=== PATIENT | female | born 1975 | race African-American/Black ===

== ENCOUNTER 2016-10-15 10:31 | Emergency (ER) | payer OTHER ==
[2016-10-15 10:50] VITALS: BP 149/63
--- NOTE | 2016-10-15 11:38 | Diag Imaging Result Document ---
PROCEDURE NAME: FINGER(S)-RIGHT - 10/15/2016 RIGHT THIRD FINGER, THREE VIEWS: FINDINGS: No fracture. No dislocation. IMPRESSION: No acute bony injury.
--- NOTE | 2016-10-15 12:09 | PROVIDER DOCUMENTATION ---
HPI-Musculoskeletal Pain/Inj - GENERAL Chief Complaint: Extremity Injury Stated Complaint: EXTREMITY PAIN/INJ Time Seen by Provider: 10/15/16 11:59 Source: patient - HX OF PRESENT ILLNESS-MUSKULOSKELTAL Nature of Presenting Problem: 40 yo AAF presents to ED with cc of a sore R third digit after hitting it on a marble table yesterday. Upon arrival to ED, pt is alert and in no apparent distress. Severity in ED: mild Onset/Duration: abrupt, 24 hours ago Timing: still present Modifying Factors: worse with: palpation Any recent injury?: Yes Locality of Occurance: Other (Sister's home) Similar Symptoms Previously?: No - UPPER EXTREMITY PAIN/INJURY Extremities Pain Location: 3rd finger: right (tender) Context / Method of Injury: reports: direct blow Associated Symptoms: reports: denies symptoms Review of Systems - Adult - REVIEW OF SYSTEMS - ADULT Constitutional: reports: no symptoms reported. denies: chills, fever Eyes: reports: no symptoms reported. denies: decreased vision, double vision Ears, Nose, Mouth & Throat: reports: no symptoms reported. denies: ear discharge, sinus problem Cardiovascular: reports: no symptoms reported. denies: chest pain, heart murmur Respiratory: reports: no symptoms reported. denies: chronic cough, hemoptysis Gastrointestinal: reports: no symptoms reported. denies: abdominal pain, diarrhea Genitourinary: reports: no symptoms reported. denies: flank pain, hematuria Musculoskeletal: reports: other (finger pain, 3rd digit R hand) Integumentary: reports: no symptoms reported. denies: hives, itching Neurological: reports: no symptoms reported. denies: dizziness/vertigo, loss of balance Psychiatric: reports: no symptoms reported Endocrine: reports: no symptoms reported Hematologic/Lymphatic: reports: no symptoms reported Allergic/Immunologic: reports: no symptoms reported All Other Systems: Reviewed and Negative Past History - Adult - PAST MEDICAL HISTORY-ADULT Review of Records: reports: Old Records Reviewed, Nursing Assessment Review, Medications Reviewed Major Childhood Illnesses: reports: denies history Cardiovascular: reports: HTN Respiratory: reports: denies history Gastrointestinal: reports: denies history Obstetrical/Gynecological: reports: denies history Genitourinary: reports: denies history Musculoskeletal: reports: chronic pain Neurological: reports: headaches/migraines Psychiatric: reports: anxiety Endocrine/Immune: reports: denies history Other Conditions: reports: denies history Additional History: Very frequent ER visits - PRIOR SURGERIES/PROCEDURES Surgical/Procedure History: reports: cholecystectomy, orthopedic (extremity), other (I&D of hemorrhoid) - PRIOR HOSPITALIZATIONS Prior Hospitalizations: reports: none - IMMUNIZATION STATUS Childhood Immunizations: See Nurse Assessment Flu Vaccine: See Nurse Assessment - FAMILY HISTORY Family History: reviewed, not pertinent Physical Exam-Injury Related - Physical Exam-Injury Related Initial Vital Signs Reviewed: Yes General Appearance: appears well, alert, no apparent distress Eyes: PERRL/EOMI, pink conjunctivae Head, Ears, Nose, Mouth & Throat: normocephalic/atraumatic, moist mucous membranes Neck: non-tender, full range of motion, supple Respiratory: chest non-tender, lungs clear Cardiovascular: normal peripheral pulses, regular rate, rhythm Abdominal Exam: non tender, soft Lymphatic: no adenopathy Back Exam: normal inspection, no vertebral tenderness Extremity: normal range of motion, tenderness (3rd digit R hand). negative: deformity, erythema, swelling Integumentary: normal color, warm/dry Neurologic: grossly normal, no motor/sensory deficits Psych/Mental Status: normal mood/affect, normal thought content, normal thought process, oriented x 3 - Gl[place]ow Coma Score Best Eye Response ([place]): (4) open spontaneously Best Verbal Response ([place]): (5) oriented Best Motor Response ([place]): (6) obeys commands [place] Total: 15 Progress - PLAN OF CARE/RESULTS Progress/Plan/Lab Results: Vital Signs - 24 hr 10/15/16 10:49 Temperature 98.3 F Pulse Rate 63 Respiratory 18 Rate Blood Pressure 149/63 O2 Sat by Pulse 100 Oximetry Orders Category Date Time Status FINGER(S)-RIGHT [RAD] Stat Exams 10/15/16 11:16 Draft Celecoxib [Celebrex] Med 10/16/16 09:00 Ordered 400 mg PO DAILY - XRAY 1 XRAY: Right XRAY Study: Hand Impression: Normal XRAY Interpretation: NAD (kaleb Sanchez, radiology) Attestation - Scribe Verification/Attestation Scribe:: Heather Alvarez Acting as Scribe for:: Gustavo Benitez Scribe documention review:: This chart was documented by a scribe and accurately reflects the service the provider performed and the decisions made by the provider. - Physician/ DARRYL Attestation Patient care was provided by Advanced Practice Provider:: No
[2016-10-15] MEDS ORDERED: CELEBREX ONE (12:12)
[2016-10-15] MEDS ORDERED: CELEBREX PO ONE (12:15)
[2016-10-16] MEDS ORDERED: CELEBREX PO SCH (09:00)
== END 2016-10-15 12:46 | disposition home or self-care (01) ==
LOC: P.ED 10:31
DX: M79.644 Pain in right finger(s) (principal); W22.8XXA Striking against or struck by other objects, initial encounter; I10 Essential (primary) hypertension; G89.29 Other chronic pain; R51 Headache; Z79.899 Other long term (current) drug therapy
CPT/HCPCS: 73140; 99283

== ENCOUNTER 2019-06-08 18:19 | Inpatient (IN) ==
[2019-06-08] MEDS ORDERED: NS 1,000 ML IV ONE ×3 (19:03→21:49)
[2019-06-08 19:16] LABS: CALCIUM 9.9 mg/dL (8.8-10.2); CREATININE 5.3 mg/dL (0.5-0.9); POTASSIUM 5.3 mmol/L (3.5-5.1)
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
[2019-06-08 20:03] LABS: BASO# 0.07 X1000 (0.0-0.2); BASO% 0.6 % (0.0-0.8); EOS# 0.27 X1000 (0.0-0.7); EOS% 2.2 % (0.0-10.0); HEMATOCRIT 34.6 % (37.0-47.0); HEMOGLOBIN 10.5 g/dL (12.0-16.0); IMM GRAN# 0.02 X1000 (0.0-0.04); IMM GRAN% 0.2 % (0.0-0.5); LYMPH# 4.57 X1000 (1.2-3.4); LYMPH% 37.5 % (20.5-51.1); MCH 26.3 PG (27-31); MCHC 30.3 g/dL (33-37); MCV 86.7 FL (81-99); MONO% 7.4 % (1.7-9.3); MPV 11.6 FL (7.4-10.4); NEUT# 6.36 X1000 (1.4-6.5); NEUT% 52.1 % (42.2-75.2); PLT 397 X1000 (130-400); RBC 3.99 XMIL (4.2-5.4); WBC 12.19 X1000 (4.8-10.8)
--- NOTE | 2019-06-08 20:03 | Diag Imaging Result Doc PS360 ---
EXAM: CT HEAD W/O CONTRAST HISTORY: AMS,headache TECHNIQUE: CT head without contrast COMPARISON: 09/24/2017 FINDINGS: No parenchymal hemorrhage. No epidural or subdural hematoma. No subarachnoid hemorrhage. No mass identified on this noncontrasted exam. No hydrocephalus. No sinus opacification. IMPRESSION: No hemorrhage. Negative brain CT without contrast. This exam was performed using automated exposure control, adjustment of mA or kV according to patient size, and/or use of iterative reconstruction technique. Electronically signed by Ahmet Sanchez 06/08/2019 8:00 PM
[2019-06-08 20:19] LABS: CK INDEX 1.3 (0.0-2.5); CK-MB 17.68 ng/mL (0.0-5.0)
[2019-06-08 20:42] LABS: BILIRUBIN URINE NEGATIVE (NEGATIVE); GLUCOSE URINE NEGATIVE (NEGATIVE)
[2019-06-08 20:43] LABS: BLOOD URINE 2+ (NEGATIVE); CLARITY SL. CLOUDY (CLEAR); COLOR YELLOW; KETONE URINE TRACE mg/dL (NEGATIVE); LEUKOCYTES URINE 1+ (NEGATIVE); NITRITE URINE NEGATIVE (NEGATIVE); PH URINE 6.5; PROTEIN URINE 1+(30 mg/dL) mg/dL (NEGATIVE); UROBILINOGEN URINE NORMAL
[2019-06-08 20:45] LABS: URINE SOURCE CATH
[2019-06-08] MEDS ORDERED: ZOFRAN IV PRN (20:45)
[2019-06-08 20:46] LABS: URINE BACTERIA 4+ /HFP; URINE EPITHELIAL CELLS <10 /HPF (<10); URINE RBC <10 /HPF (<10); URINE YEAST NONE SEEN /HPF
[2019-06-08 20:47] LABS: URINE CAST NONE SEEN /LPF; URINE CRYSTAL NONE SEEN /HPF
[2019-06-08] MEDS ORDERED: SODIUM BICARBONATE 8.4% IV PUSH ONE (20:48)
[2019-06-08 20:56] LABS: UR AMPHETAMINES QUAL NONE DETECTED (NONE DETECT); UR BARBITUATES QUAL NONE DETECTED (NONE DETECT); UR BENZODIAZEPIN QUAL PRESUMPTIVE POSITIVE (NONE DETECT); UR CANNABINOIDS QUAL NONE DETECTED (NONE DETECT); UR COCAINE QUAL PRESUMPTIVE POSITIVE (NONE DETECT); UR METHADONE QUAL NONE DETECTED (NONE DETECT); UR METHAMPHETAMINE QUAL NONE DETECTED (NONE DETECT); UR OPIATES QUAL PRESUMPTIVE POSITIVE (NONE DETECT); UR OXYCODONE QUAL NONE DETECTED (NONE DETECT); UR PCP QUAL NONE DETECTED (NONE DETECT); UR PROPOXYPHENE QUAL NONE DETECTED (NONE DETECT); UR TCA QUAL NONE DETECTED (NONE DETECT)
[2019-06-08] MEDS ORDERED: MERREM 1 GM in NS 50 ML IV ONE (21:48)
[2019-06-08] MEDS ORDERED: NARCAN IV ONE (21:49)
[2019-06-08] MEDS ORDERED: NS 500 ML IV ONE (21:49)
[2019-06-08] MEDS ORDERED: PITRESSIN 40 UNIT in NS 100 ML IV SCH (22:00)
[2019-06-08] MEDS ORDERED: LEVOPHED 8 MG in D5 1/2 NS 250 ML IV SCH (22:00)
[2019-06-08] MEDS ORDERED: EPINEPHRINE 8 MG in D5W 250 ML IV SCH (22:00)
[2019-06-08 23:35] LABS: ACETAMINOPHEN < 1.2 ug/mL (10-30); CREATININE 4.8 mg/dL (0.5-0.9); POTASSIUM 5.4 mmol/L (3.5-5.1); SALICYLATES < 3.00 mg/dL (3-10)
[2019-06-09 02:44] LABS: CALCIUM 8.6 mg/dL (8.8-10.2); CREATININE 3.6 mg/dL (0.5-0.9)
[2019-06-09] MEDS: LEVOPHED 8 MG in D5 1/2 NS 250 ML IV SCH ×2 (02:47→08:50)
[2019-06-09] MEDS: NS 1,000 ML IV SCH ×4 (03:05→22:16)
[2019-06-09 03:16] LABS: POTASSIUM 4.6 mmol/L (3.5-5.1)
--- NOTE | 2019-06-09 07:38 | EKG Report ---
Test Performed on : 06/08/2019 9:10:35 PM Test Reason : ER Blood Pressure : / mmHG Vent. Rate : 069 BPM Atrial Rate : 069 BPM P-R Int : 154 ms QRS Dur : 094 ms QT Int : 388 ms P-R-T Axes : 040 043 027 degrees QTc Int : 415 ms Normal sinus rhythm. Normal ECG When compared with ECG of 04-NOV-2018 13:54, No significant change was found Unconfirmed Result
[2019-06-09] MEDS: HUMALOG (PARKWAY) SUBQ SCH ×3 (11:06→20:16)
[2019-06-09] MEDS: TYLENOL PO PRN ×2 (11:17→16:48)
[2019-06-09] MEDS: XANAX PO SCH ×3 (11:17→21:11)
[2019-06-09] MEDS: ROCEPHIN 1 GM in NS 50 ML IV SCH (11:18)
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
[2019-06-09 14:22] LABS: CREATININE 1.5 mg/dL (0.5-0.9); POTASSIUM 4.9 mmol/L (3.5-5.1)
[2019-06-09 14:49] LABS: CK INDEX 1.3 (0.0-2.5); CK-MB 9.97 ng/mL (0.0-5.0)
[2019-06-09] MEDS: NICODERM PATCH TD SCH (14:51)
[2019-06-09] MEDS: ZOFRAN IV PRN (19:35)
--- NOTE | 2019-06-10 03:49 | HISTORY AND PHYSICAL ---
ADDENDUM: The patient was seen and examined by myself. Full note dictated and discussed with nurse practitioner. The patient presented to the hospital in acute renal failure with a BUN of 54, creatinine of 5.4. Currently both are improved with a creatinine closer to 2. Unfortunately she has a known history of cocaine abuse. It appears as though she would used cocaine and got dehydrated. She was on metformin and lisinopril for diabetes and hypertension. We are going to hold both of these. Currently kidney function is improving. Continue IV fluids and we will follow. TIME SPENT: Greater than 30 minutes was spent in total care. cc: Azam Gregorio MD
[2019-06-10] MEDS: HUMALOG (PARKWAY) SUBQ SCH ×2 (06:02→11:24)
[2019-06-10 06:09] LABS: CALCIUM 9.1 mg/dL (8.8-10.2); POTASSIUM 5.3 mmol/L (3.5-5.1)
[2019-06-10 06:11] LABS: BASO# 0.06 X1000 (0.0-0.2); BASO% 0.8 % (0.0-0.8); EOS# 0.23 X1000 (0.0-0.7); EOS% 3.1 % (0.0-10.0); HEMATOCRIT 32.5 % (37.0-47.0); HEMOGLOBIN 10.5 g/dL (12.0-16.0); IMM GRAN# 0.01 X1000 (0.0-0.04); IMM GRAN% 0.1 % (0.0-0.5); LYMPH# 2.65 X1000 (1.2-3.4); LYMPH% 36.3 % (20.5-51.1); MCH 27.2 PG (27-31); MCHC 32.3 g/dL (33-37); MCV 84.2 FL (81-99); MONO# 0.59 X1000 (0.11-0.59); MONO% 8.1 % (1.7-9.3); MPV 11.5 FL (7.4-10.4); NEUT# 3.77 X1000 (1.4-6.5); NEUT% 51.6 % (42.2-75.2); PLT 289 X1000 (130-400); RBC 3.86 XMIL (4.2-5.4); RDW 14.6 % (11.5-14.5); WBC 7.31 X1000 (4.8-10.8)
[2019-06-10] MEDS: NS 1,000 ML IV SCH (06:22)
[2019-06-10 06:27] LABS: CK INDEX 0.6 (0.0-2.5); CK-MB 3.23 ng/mL (0.0-5.0)
[2019-06-10] MEDS: XANAX PO SCH (08:22)
[2019-06-10] MEDS: NICODERM PATCH TD SCH (08:22)
[2019-06-10] MEDS: TYLENOL PO PRN (08:22)
[2019-06-10] MEDS: ZOFRAN IV PRN (08:28)
[2019-06-10] MEDS ORDERED: NS 1,000 ML IV ONE (10:54)
[2019-06-10] MEDS: ROCEPHIN 1 GM in NS 50 ML IV SCH (11:32)
[2019-06-10 12:20] VITALS: BP 162/107
[2019-06-10] MEDS ORDERED: PNEUMOVAX 23 IM ONE (12:45)
[2019-06-10] MEDS ORDERED: FLU VACCINE IM ONE (12:45)
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
== END 2019-06-10 13:37 | disposition home or self-care (01) | DRG 683 ==
LOC: P.ED 18:19 → P.ICU 18:19 → SUATTDRO 22:16 → OBSVTOIN 22:16
PROVIDERS: ATTEND Internal Medicine